=== PATIENT | female | born 1985 | race Native Hawaiian/Other Pacific Islander ===

== ENCOUNTER 2017-02-20 10:40 | Emergency (ER) | payer MEDICARE, OTHER ==
[~2017-02-20] VITALS: Ht 149.9 cm; Wt 72.6 kg
[~2017-02-20 10:40] MED LIST: ACETAMINOPHEN500 MG PO; BIRTH CONTROL; CEPHALEXIN500 MG PO; CIPROFLOXACIN500 MG PO; CYCLOBENZAPRINE5 MG; IBUPROFEN600 MG PO; MACROBID 100 M100 MG PO; MELOXICAM15 MG PO; MELOXICAM7.5 MG PO; OMEPRAZOLE20 MG PO; PYRIDIUM200 MG PO; TRAMADOL HCL50 MG PO
--- OUTSIDE RECORDS SUMMARY | 2017-02-20 11:29 | XMS ---
Demographics + + + | Address | [address] | | | [address] | | | [place] [address] | + + + | Preferred Language | Unknown | + + + | Marital Status | Unknown | + + + | Moravian Affiliation | Unknown | + + + | Race | Unknown | + + + | Ethnic Group | Unknown | + + + Author + + + | Author | [facility] | + + + | Organization | [facility] | + + + | Address | [address] | | | [place] [address] | + + + | Phone | | + + + Care Team Providers + + + + | Care Employment Legal Assistant Name | Role | Phone | + + + + Unavailable | Unavailable | + + + + PROBLEMS +---------+ + + +--------+ + + | Type | Condition | ICD9-CM | [id number] | Onset | Condition | SNOMED | | | | Code | Code | Dates | Status | Code | +---------+ + + +--------+ + + | Problem | Nausea | 787.01 | | | Active | [id number] | | | with | | | | | | | | vomiting | | | | | | +---------+ + + +--------+ + + | Problem | Tooth pain | K08.8 | | | Active | [id number] | +---------+ + + +--------+ + + | Problem | Encounter | | Z71.89 | | Active | [id number] | | | to | | | | | | | | establish | | | | | | | | care | | | | | | +---------+ + + +--------+ + + | Problem | Vaginitis/ | 616.10 | | | Active | [id number] | | | | | | | | | | | Vulvovagin | | | | | | | | itis | | | | | | | | unspecifie | | | | | | | | d | | | | | | +---------+ + + +--------+ + + | Problem | URIN TRACT | 599.0 | | | Active | [id number] | | | INFECTION | | | | | | | | NOS | | | | | | +---------+ + + +--------+ + + | Problem | Back pain | | M54.9 | | Active | [id number] | +---------+ + + +--------+ + + | Problem | Degenerati | M41.50 | | | Active | | | | ve | | | | | | | | scoliosis | | | | | | | | in adult | | | | | | | | patient | | | | | | +---------+ + + +--------+ + + ALLERGIES Unknown Allergies SOCIAL HISTORY No smoking Hx information available PLAN OF CARE VITAL SIGNS MEDICATIONS Unknown Medications RESULTS No Results PROCEDURES No Known procedures IMMUNIZATIONS No Known Immunizations"
--- OUTSIDE RECORDS SUMMARY | 2017-02-20 11:29 | XMS ---
Demographics + + + | Address | [address] | | | [address] | | | [place] [address] | + + + | Preferred Language | Unknown | + + + | Marital Status | Unknown | + + + | Caodaism Affiliation | Unknown | + + + | Race | Unknown | + + + | Ethnic Group | Unknown | + + + Author + + + | Author | [facility] | + + + | Organization | [facility] | + + + | Address | [address] | | | [place] [address] | + + + | Phone | | + + + Care Team Providers + + + + | Care Tie Inspector Name | Role | Phone | + + + + Unavailable | Unavailable | + + + + PROBLEMS + + + + + + + + | Type | Condition | ICD9-CM | [id number] | Onset | Condition | SNOMED | | | | Code | Code | Dates | Status | Code | + + + + + + + + | Assessment | UTI | | N39.0 | 10 Apr, | Active | [id number] | | | (urinary | | | 2017 | | | | | tract | | | | | | | | infection) | | | | | | + + + + + + + + | Problem | Nausea | 787.01 | | | Active | [id number] | | | with | | | | | | | | vomiting | | | | | | + + + + + + + + | Assessment | Abdominal | | R10.9 | 10 Apr, | Active | [id number] | | | pain | | | 2016 | | | + + + + + + + + | Problem | Tooth pain | K08.8 | | | Active | [id number] | + + + + + + + + | Problem | Encounter | | Z71.89 | | Active | [id number] | | | to | | | | | | | | establish | | | | | | | | care | | | | | | + + + + + + + + | Problem | Vaginitis/ | 616.10 | | | Active | [id number] | | | | | | | | | | | Vulvovagin | | | | | | | | itis | | | | | | | | unspecifie | | | | | | | | d | | | | | | + + + + + + + + | Problem | URIN TRACT | 599.0 | | | Active | [id number] | | | INFECTION | | | | | | | | NOS | | | | | | + + + + + + + + | Problem | Back pain | | M54.9 | | Active | [id number] | + + + + + + + + | Problem | Degenerati | M41.50 | | | Active | | | | ve | | | | | | | | scoliosis | | | | | | | | in adult | | | | | | | | patient | | | | | | + + + + + + + + ALLERGIES + + + + +--------+ | Substance | Reaction | Event Type | Date | Status | + + + + +--------+ | Penicillin | Unknown | Drug Allergy | Nov, | Active | + + + + +--------+ SOCIAL HISTORY No smoking Hx information available PLAN OF CARE VITAL SIGNS + + + + | Height | 59 in | 2016-11-12 | + + + + | Weight | 162.8 lbs | 2016-11-12 | + + + + | BMI | 32.88 kg/m2 | 2016-11-12 | + + + + | Temperature | 97.8 degrees Fahrenheit | 2016-11-12 | + + + + | Heart Rate | 62 /min | 2016-11-12 | + + + + | Blood pressure systolic | 110 mm Hg | 2016-11-12 | + + + + | Blood pressure diastolic | 74 mm Hg | 2016-11-12 | + + + + MEDICATIONS + + + + + + + +--------+ | Medicati | Instruct | Dosage | Frequenc | Start | End Date | Duration | Status | | on | ions | | y | Date | | | | + + + + + + + +--------+ | Tylenol | Orally | 1 tablet | 6h | | | | Active | | 325 MG | every 6 | as | | | | | | | | hrs | needed | | | | | | + + + + + + + +--------+ | Bactrim | Orally | 1 tablet | 12h | 10 Apr, | 13 Apr, | 3 days | Active | | DS | bid | | | 2017 | 2016 | | | | 800-160 | | | | | | | | | MG | | | | | | | | + + + + + + + +--------+ RESULTS + +--------+------+ + | Name | Result | Date | Reference Range | + +--------+------+ + | Urinalysis, Dip | | | | | (IH) | | | | + +--------+------+ + | Specific [place] | 1.020 | | | + +--------+------+ + | pH | 5 | | | + +--------+------+ + | Leukocytes | 500 | | | + +--------+------+ + | Nitrite, Urine | pos | | | + +--------+------+ + | Protein | neg | | | + +--------+------+ + | Glucose | norm | | | + +--------+------+ + | Ketones | neg | | | + +--------+------+ + | Urobilingen, | norm | | | | Semi-Qn | | | | + +--------+------+ + | Bilirubin | neg | | | + +--------+------+ + | Blood Hemoglobin | 50 | | | | (BLD) | | | | + +--------+------+ + PROCEDURES + + + + + | Procedure | Date Ordered | Related Diagnosis | Body Site | + + + + + | LAB URINALYSIS (DIP | November 12, 2016 | | | | STICK ONLY | | | | + + + + + IMMUNIZATIONS No Known Immunizations"
[2017-02-20] MEDS ORDERED: ZOFRAN ODT4 MG PO (11:57)
[2017-02-20] MEDS ORDERED: CIPRO500 MG PO (11:57)
[2017-02-20] MEDS ORDERED: PYRIDIUM200 MG PO (11:57)
== END 2017-02-20 13:23 | disposition home or self-care (01) ==
LOC: ED 10:40
DX: N39.0 Urinary tract infection, site not specified (principal); F17.200 Nicotine dependence, unspecified, uncomplicated; Z88.0 Allergy status to penicillin
CPT/HCPCS: 36415; 80053; 81001; 84703; 85025; 87077; 87088; 87186; 99283

== ENCOUNTER 2017-06-23 19:31 | Emergency (ER) | payer MEDICARE, OTHER ==
[~2017-06-23] VITALS: Ht 149.9 cm; Wt 74.4 kg
--- OUTSIDE RECORDS SUMMARY | ~2017-06-23 | XMS ---
Demographics + + + | Address | [address] | | | [address] | | | [place] [address] | + + + | Preferred Language | Unknown | + + + | Marital Status | Unknown | + + + | Mosque Affiliation | Unknown | + + + | Race | Unknown | + + + | Ethnic Group | Unknown | + + + Author + + + | Author | [facility] | + + + | Organization | [facility] | + + + | Address | [address] | | | [place] [address] | + + + | Phone | | + + + Care Team Providers + + + + | Care Bottom Stop Attacher Name | Role | Phone | + + + + Unavailable | Unavailable | + + + + PROBLEMS +---------+ + + +--------+ + + | Type | Condition | ICD9-CM | [id number] | Onset | Condition | SNOMED | | | | Code | Code | Dates | Status | Code | +---------+ + + +--------+ + + | Problem | Nausea | 787.01 | | | Active | [id number] | | | with | | | | | | | | vomiting | | | | | | +---------+ + + +--------+ + + | Problem | Tooth pain | K08.8 | | | Active | [id number] | +---------+ + + +--------+ + + | Problem | Encounter | | Z71.89 | | Active | [id number] | | | to | | | | | | | | establish | | | | | | | | care | | | | | | +---------+ + + +--------+ + + | Problem | Vaginitis/ | 616.10 | | | Active | [id number] | | | | | | | | | | | Vulvovagin | | | | | | | | itis | | | | | | | | unspecifie | | | | | | | | d | | | | | | +---------+ + + +--------+ + + | Problem | URIN TRACT | 599.0 | | | Active | [id number] | | | INFECTION | | | | | | | | NOS | | | | | | +---------+ + + +--------+ + + | Problem | Back pain | | M54.9 | | Active | [id number] | +---------+ + + +--------+ + + | Problem | Degenerati | M41.50 | | | Active | | | | ve | | | | | | | | scoliosis | | | | | | | | in adult | | | | | | | | patient | | | | | | +---------+ + + +--------+ + + ALLERGIES No Information SOCIAL HISTORY Never Assessed PLAN OF CARE VITAL SIGNS MEDICATIONS Unknown Medications RESULTS No Results PROCEDURES No Known procedures IMMUNIZATIONS No Known Immunizations MEDICAL (GENERAL) HISTORY + + +------+ | Type | Description | Date | + + +------+ | Medical History | scoliosis | | + + +------+"
[~2017-06-23 19:31] MED LIST changes: +CIPRO500 MG PO; +ZOFRAN ODT4 MG PO
[2017-06-23] MEDS ORDERED: MOTRIN IB200 MG PO (19:45)
[2017-06-23] MEDS ORDERED: KEFLEX500 MG PO (19:47)
[2017-06-23] MEDS ORDERED: CYCLOBENZAPRINE10 MG PO (20:30)
== END 2017-06-23 20:45 | disposition home or self-care (01) ==
LOC: ED 19:31
DX: G89.29 Other chronic pain (principal); M54.5 Low back pain; F17.200 Nicotine dependence, unspecified, uncomplicated; Z88.0 Allergy status to penicillin; Z79.2 Long term (current) use of antibiotics
CPT/HCPCS: 99283